=== PATIENT | male | born 1995 | race Caucasian/White ===

== ENCOUNTER 2020-04-11 17:32 | Emergency (ER) | payer OTHER, SELFPAY ==
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
[2020-04-11 17:33] VITALS: BP 151/92; PULSE 87; RESP 18; TEMP 36.2; O2SAT 97
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
[2020-04-11] MEDS: KETOROLAC (*BKC) 60 MG/2 ML VIAL IM (19:05)
[2020-04-11] MEDS: diazePAM INJ (*CRX) 10 MG/2 ML SYRINGE 5 MG IM (19:53)
== END 2020-04-11 20:25 | disposition home or self-care (01) ==
PROVIDERS: Emergency Provider Family Medicine
DX: S16.1XXA Strain of muscle, fascia and tendon at neck level, initial encounter (principal); S93.401A Sprain of unspecified ligament of right ankle, initial encounter; M54.5 Low back pain; V49.40XA Driver injured in collision with unspecified motor vehicles in traffic accident, initial encounter
CPT/HCPCS: 72125; 72131; 73564; 73610; 73630; 96372; 99284; J1885; J3360; L0140

== ENCOUNTER 2020-07-14 11:43 | Emergency (ER) | payer OTHER, SELFPAY ==
--- NOTE | ~2020-07-14 | XR_ITS ---
EXAMINATION: XR hand LT min 3V INDICATION: Pain and laceration at the fourth and fifth fingers TECHNIQUE: Three views of the left hand are obtained. COMPARISON: None available FINDINGS: There is soft tissue swelling of the medial and laceration overlying the fourth and fifth p roximal phalanges. No underlying osseous abnormality is identified. The joint spaces are normal. Bone alignment is maintained. No radiopaque foreign body is identified. IMPRESSION: 1. Soft tissue laceration and swelling overlying the fourth and fifth proximal phalanges without acut e osseous abnormality or radiopaque foreign body identified. Reviewed, dictated and finalized at location A. S TEAM LEADER IMPRESSION: 1. Soft tissue laceration and swelling overlying the fourth and fifth proximal phalanges without acute osseous abnormality or radiopaque foreign body identifi ed.
[2020-07-14 11:45] VITALS: BP 136/73; PULSE 80; RESP 16; TEMP 36.7; O2SAT 96
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
[2020-07-14] MEDS: HYDROcodone/acetaminophen (*CRX) 5-325 MG TABLET 1 TAB PO (12:28)
[2020-07-14] MEDS: TETANUS,DIPHTHERIA,AC PERTUSSIS ADULT (0.5 ML) BOOSTRIX IM (12:29)
[2020-07-14] MEDS: KETOROLAC (*BKC) 60 MG/2 ML VIAL IM (16:00)
[2020-07-14] MEDS: ACETAMINOPHEN 500 MG TABLET 1000 MG PO (17:34)
[2020-07-14] MEDS: diazePAM INJ (*CRX) 10 MG/2 ML SYRINGE 5 MG IM (17:35)
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
== END 2020-07-14 19:38 | disposition home or self-care (01) ==
PROVIDERS: Emergency Provider Emergency Medicine; PCP Family Medicine
DX: S66.325A Laceration of extensor muscle, fascia and tendon of left ring finger at wrist and hand level, initial encounter (principal); S66.327A Laceration of extensor muscle, fascia and tendon of left little finger at wrist and hand level, initial encounter; I10 Essential (primary) hypertension; F17.290 Nicotine dependence, other tobacco product, uncomplicated; Z23 Encounter for immunization; W29.3XXA Contact with powered garden and outdoor hand tools and machinery, initial encounter
CPT/HCPCS: 26418; 73130; 90471; 90715; 96372; 99284; A9270; J1885; J3360

== ENCOUNTER 2020-08-03 17:15 | Outpatient (RCR) | payer OTHER, SELFPAY ==
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
--- NOTE | 2020-07-07 17:45 | PCPTNOTE ---
Patient called & cancelled scheduled appointment this date due to running late.
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
--- NOTE | 2020-08-10 17:31 | PCPTNOTE ---
Patient did not show up for scheduled appointment this date.
--- NOTE | 2020-11-15 08:23 | PCPTNOTE ---
PHYSICAL THERAPY DISCHARGE NOTE Attending Provider: Harika Belcher MD Patient:Uday Gorman Date of :1995 Patient has not returned for any further treatments since 08/03/2020, therefore he will be discharged at this time. Patient?s initial visit was on 06/14/2020 14:30 and he had a total of 9 visits. Thank you for referring this patient to [facility]. Please review, sign, date and return this discharge summary JOSE ANGEL. I have been updated about the patient's current status and I agree with discharge from the above service at this time. Referring Physician Date
== END 2020-09-12 23:59 | disposition home or self-care (01) ==
LOC: ANHPT 17:15
PROVIDERS: PCP Family Medicine; Visit Provider Family Medicine
DX: M54.5 Low back pain (principal)
CPT/HCPCS: 97014; 97110; 97140; 97161; G0283

== ENCOUNTER → 2021-07-16 01:10 | Outpatient (CLI) | payer BC, SELFPAY ==
[2021-07-16 23:19] LABS: SARS-CoV-2 RNA PCR Negative
== END ==
PROVIDERS: Physician Assistant; PCP Family Medicine; Visit Provider Family Medicine
DX: R43.0 Anosmia (principal); Z20.822 Contact with and (suspected) exposure to COVID-19
CPT/HCPCS: C9803; U0003; U0005

== ENCOUNTER 2021-10-10 14:26 | Emergency (ER) | payer BC, SELFPAY ==
--- NOTE | 2021-10-10 14:35 | ED.MALEGU ---
HPI - Male Genitourinary General Chief complaint: Urogenital-Male Stated complaint: uti complaint,nasal congestion Time Seen by Provider: 10/10/21 14:50 Source: patient Mode of arrival: ambulatory Limitations: no limitations History of Present Illness HPI Narrative: Mr. Gorman is a 26-year-old male patient presenting to the clinic today with complaints of burning with urination and nasal congestion 2 to 3 days. He reports he has had chills, low back pain, difficulty urinating, dribbling, and fullness of the bladder. He denies any known fever. Denies any blood in semen or pain with ejaculation. Denies any new sexual partners. does not have any urinary symptoms/vaginal discharge. Related Data Home Medications Medication Instructions Recorded Confirmed hydrocodone-acetaminophen 1 tablet PO Q4-6H 10/10/21 10/10/21 Allergies Allergy/AdvReac Type Severity Reaction Status Date / Time No Known Allergies Allergy Verified 10/10/21 14:49 Review of Systems Review of Systems: Pertinent positives per HPI. Patient denies any rash, headache, visual changes, dizziness, cough, runny nose, sore throat, shortness of breath, chest pain, palpitations, nausea, vomiting, diarrhea, constipation, abdominal pain, or any urinary issues. [facility] Past Medical History Medical History History of hypertension Surgical History Surgical History H/O hand surgery Social History Social History Years smoked: 2 Tobacco type: e-cigarettes/vaping Alcohol intake: current Alcohol use details: rare Substance use: never Substance use type: does not use Comments At the time of my signature, I reviewed and agree with the nursing past medical, surgical, social, and family history. There is no relevant family history pertinent to the patient complaint. Exam Narrative: General: Well-developed, , in no apparent distress Head: Normocephalic, atraumatic Eyes: Pupils equally round and reactive to light bilaterally, EOM intact, sclera and conjunctive clear, no discharge, lids normal Ears: TMs intact and clear, ear canals clear, no drainage, grossly hearing normal. Nose: Nares patent, clear discharge, mild inflammation, no sinus tenderness. Mouth: Oropharynx without lesions or masses, good dentition, MMM. Neck: Supple, trachea midline, no enlargement of anterior or posterior cervical nodes, no thyroid masses or goiter palpable. Cardio: Regular rate and rhythm, s1 and s2 normal, no murmur appreciated. Resp: Clear to auscultation bilaterally anteriorly and posteriorly, no rhonchi, rales, wheezing or rubs Abdomen: Soft, pliable, bowel sounds present in all quadrants, non-tender to palpation, no organomegly, no CVAT tenderness. Some discomfort over the palpation of the urinary bladder. Course Course Emergency Course: Portions of this record may have been created with voice recognition software. Level of Care: Express Care Visit Vital Signs Vital signs: Vital Signs Temperature 36.3 C L 10/10/21 14:42 Pulse Rate 70 10/10/21 14:42 Respiratory Rate 18 10/10/21 14:42 Blood Pressure 129/74 10/10/21 14:42 Pulse Oximetry 100 10/10/21 14:42 Temperature 36.3 C L 10/10/21 14:42 Pulse Rate 70 10/10/21 14:42 Respiratory Rate 18 10/10/21 14:42 Blood Pressure 129/74 10/10/21 14:42 Pulse Oximetry 100 10/10/21 14:42 Vital signs reviewed MDM - Male Genitourinary MDM Narrative Medical decision making narrative: Patient resting comfortably on the exam table. at bedside. Influenza testing negative . Denies any new sexual partners. Has urinary dribbling, fullness, low back pain, chills, and dysuria. UA is negative for any leukocytes or blood. Denies any pain with ejaculation or any blood in his semen. I suspect prostatitis.
[2021-10-10 14:42] VITALS: BP 129/74; PULSE 70; RESP 18; TEMP 36.3; O2SAT 100
== END 2021-10-10 15:19 | disposition home or self-care (01) ==
PROVIDERS: Emergency Provider Nurse Practitioner Family; PCP Family Medicine
DX: N41.0 Acute prostatitis (principal); F17.290 Nicotine dependence, other tobacco product, uncomplicated; I10 Essential (primary) hypertension
CPT/HCPCS: 81003; 87086; 87804; 99213; G0463

== ENCOUNTER 2021-11-16 14:59 | Outpatient (RCR) | payer BC, SELFPAY ==
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
--- NOTE | 2021-11-23 16:28 | PCPTNOTE ---
Patient did not show up for scheduled appointment this date; will follow-up with patient when he returns from vacation.
--- NOTE | 2021-12-20 13:00 | PCPTNOTE ---
Attending Provider: Harika Belcher MD Patient:Uday Gorman Date of :1995 PHYSICAL THERAPY DISCHARGE SUMMARY. Patient was called and notified that his insurance will no longer be accepted after 12/30/2021. He will be discharged at this time and care will be re-established if he decides to return with a new insurance. Patient was very understanding and receptive to this information. Patient?s initial visit was on 11/16/2021 and he had a total of 1 visits. The goals have been not met. Thank you for referring this patient to [facility]. Please review, sign, date and return this discharge summary JOSE ANGEL. I have been updated about the patient's current status and I agree with discharge from the above service at this time. Referring Physician Date
== END 2021-12-26 14:50 | disposition home or self-care (01) ==
LOC: ANHPT 14:59
PROVIDERS: PCP Family Medicine; Referring Provider Family Medicine; Visit Provider Family Medicine
DX: M51.9 Unspecified thoracic, thoracolumbar and lumbosacral intervertebral disc disorder (principal)
CPT/HCPCS: 97112; 97140; 97161

== ENCOUNTER 2022-04-11 16:38 | Outpatient (CLI) | payer OTHER, SELFPAY ==
--- NOTE | ~2022-04-11 | US_ITS ---
EXAMINATION: US soft tissue head and neck DATE: 04/11/2022 17:09 INDICATION: I88.9 - Nonspecific lymphadenitis, unspecified . TECHNIQUE: Grayscale and Doppler ultrasound images of the neck soft tissues were obtained. COMPARISON: None. FINDINGS: The region of clinical concern was interrogated along the posterior left neck revealing mul tiple level 5 lymph nodes, measuring up to 4 mm in short axis diameter. Similar-appearing and size ly mph nodes are present on the right neck. IMPRESSION: The palpable abnormality corresponds to left posterior chain lymph nodes, measuring up to 4 [address] in [address] rt axis diameter. No asymmetry detected between the sonographically visible left and right posterior chain nodes. Reviewed, dictated and finalized at location K. IMPRESSION: The palpable abnormality corresponds to left posterior chain lymph nodes, measu ring up to 4 mm in short axis diameter. No asymmetry detected between the sonog raphically visible left and right posterior chain nodes.
== END 2022-04-11 16:39 | disposition home or self-care (01) ==
PROVIDERS: PCP Family Medicine; Visit Provider Physician Assistant Medical
DX: I88.9 Nonspecific lymphadenitis, unspecified (principal)
CPT/HCPCS: 76536

== ENCOUNTER 2022-04-12 15:30 | Outpatient (RCR) | payer OTHER, SELFPAY ==
--- NOTE | 2022-03-03 15:43 | PCPTNOTE ---
Patient did not show up for scheduled initial evaluation this date.
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
--- NOTE | 2022-03-29 16:21 | PCPTNOTE ---
Patient did not show up for scheduled appointment this date.
--- NOTE | 2022-04-12 16:27 | PTOPPROG ---
Assessment and note entered by Bonilla Arechiga, PT, DPT Evaluation Information Assessment Status Progress Diagnosis back pain Onset chronic Subjective Information Pt states he is feeling stiff and sore today. Pt states he has had a stabbing pain in his back 3 different times already today. Pt states overall he is feeling about the same. He states the pinching and shocking pain he gets have been unchanged. He states his stiffness gets a little better but it is short term relief. He states the therapy massages are the only thing that feels beneficial. Assessment PT Clinical Summary Uday presents to therapy today for his progress report following 5 visits of skilled therapy to treat his chronic back pain. Today he demonstrates improved hip strength but continues to have core weakness. He demonstrates stiff and guarded postures during transitional movements. He demonstrates tenderness to palpation and viable muscle spasms with palpation of his lumbar spine. He reports fair compliance with his HEP and has made minimal progress towards his therapy goals. It is recommended that he follow up with his referring prior to returning to therapy. Plan of Care Interventions Electrical Stimulation,Hot Pack/Cold Pack,Manual Therapy,Neuro Re-education,Patient/Caregiver Educati,Therapeutic Activities,Therapeutic Exercise Treatment Frequency and pending follow up with referring provider Duration These treatments will address the objective and functional deficits as defined above. The patient will be advanced safely and appropriately in order for the patient to progress towards his/her prior level of function. Additional exercises will be introduced and as well as a comprehensive home exercise program upon discharge, if needed, ?to ensure carryover of functional gains achieved in the clinic. This treatment plan has been reviewed and agreement upon by the patient.
--- NOTE | 2022-06-12 11:54 | PCPTNOTE ---
This treatment is being continued on visit number [id number]. Please see documentation on both accounts to view progress. Completed interventions, outcomes, and problems have been marked as Inactive to facilitate the copying of the Care plan routine for recurring accounts.
== END 2022-06-07 08:44 | disposition home or self-care (01) ==
LOC: ANHGOSHPT 15:30
PROVIDERS: PCP Family Medicine; Visit Provider Family Medicine
DX: M51.9 Unspecified thoracic, thoracolumbar and lumbosacral intervertebral disc disorder (principal)
CPT/HCPCS: 97110; 97112; 97140; 97161; 99199

== ENCOUNTER 2022-06-07 14:52 | Outpatient (CLI) | payer OTHER, SELFPAY ==
--- NOTE | ~2022-06-07 | MR_ITS ---
EXAMINATION: MR lumbar spine wo con DATE: 06/07/2022 15:40 INDICATION: Back pain. TECHNIQUE: Magnetic resonance imaging (MRI) of the lumbar spine was performed without intravenous con trast. Sequences included sagittal T2-weighted FSE, sagittal T2-weighted FS FSE, sagittal T1-weighted FSE, and axial T2-weighted FSE. COMPARISON: Lumbar spine CT 04/11/2020 FINDINGS: Bone alignment is normal. There is mild chronic anterior wedging of T12 vertebral body. Int ervertebral disc heights are normal. The distal spinal cord signal intensity is normal. The conus med ullaris is at L1. The following disc levels are specifically discussed: L1-L2: The disc does not extend beyond the endplate margin. There is mild left facet joint osteoarthr itis. There is no neural foraminal stenosis. There is no central canal stenosis. L2-L3: The disc is mildly bulging. There is mild bilateral facet joint osteoarthritis. There is mild bilateral neural foraminal stenosis. There is no central canal stenosis. L3-L4: The disc does not extend beyond the endplate margin. There is mild bilateral facet joint osteo arthritis. There is no neural foraminal stenosis. There is no central canal stenosis. L4-L5: The disc is bulging. There is mild bilateral facet joint osteoarthritis. There is mild bilater al neural foraminal stenosis. There is no central canal stenosis. L5-S1: The disc is bulging. There is mild bilateral facet joint osteoarthritis. There is mild bilater al neural foraminal stenosis. There is mild central canal stenosis. IMPRESSION: 1. Mild lumbar spondylosis. Reviewed, dictated and finalized at location E. FLEXER IMPRESSION: 1. Mild lumbar spondylosis.
[2022-06-07 16:16] LABS: Alanine Aminotransferase 19 U/L (6-50); Albumin Level 4.6 g/dL (3.5-5.1); Alkaline Phosphatase 43 U/L (38-126); Anion Gap 5 mmol/L (8-16); Aspartate Amino Transferase 24 U/L (17-59); Bilirubin,Total 0.6 mg/dL (0.2-1.3); Blood Urea Nitrogen 15 mg/dL (9-20); Calcium 9.3 mg/dL (8.4-10.2); Carbon Dioxide 26 mmol/L (22-30); Chloride 107 mmol/L (98-107); Estimated Glomerular Filt Rate > 60; Glucose 89 mg/dL (65-110); Sodium 138 mmol/L (137-145)
[2022-06-07 16:45] LABS: Hemoglobin A1C 5.2 % (<5.7)
== END 2022-06-07 14:53 | disposition home or self-care (01) ==
LOC: ANHIMG 15:00
PROVIDERS: PCP Family Medicine; Visit Provider Neurological Surgery
DX: N31.9 Neuromuscular dysfunction of bladder, unspecified (principal); M54.9 Dorsalgia, unspecified; M47.816 Spondylosis without myelopathy or radiculopathy, lumbar region
CPT/HCPCS: 36415; 72148; 80053; 83036; 84443

== ENCOUNTER 2022-06-14 09:00 | Outpatient (RCR) | payer OTHER, SELFPAY ==
--- NOTE | 2022-06-12 11:54 | PCPTNOTE ---
The treatment documented on this account is a continuation of the treatment documented on visit number [id number]. Please see documentation on both accounts to view progress. The Plan of Care has been transitioned and updated within the new V#. I have addressed and agree with the discipline specific Problems, Interventions, and Goals for the current certification period. Completed interventions, outcomes, and problems have been marked as Inactive to facilitate the copying of the Care plan routine for recurring accounts.
--- NOTE | 2022-06-14 15:20 | PCPTNOTE ---
Patient did not show up for scheduled re-evaluation this date. This was his last scheduled visit.
--- NOTE | 2022-07-05 09:34 | PTOPDC ---
Assessment and note entered by Bonilla Arechiga, PT, DPT Evaluation Information Assessment Status Discharge - Pt Not Present Subjective Information Pt has not returned to therapy since 04/12/22. He had a scheduled appointment on 06/13/22 and did not show up to this. Assessment PT Clinical Summary Uday has completed 6 visits of therapy from from 04/12/22. He is going to be discharged at this time. If he needs additional therapy in the future, he will need a new order. Plan of Care Treatment Frequency and to be discharged Duration
== END 2022-07-05 15:52 | disposition home or self-care (01) ==
LOC: ANHGOSHPT 09:00
PROVIDERS: PCP Family Medicine; Visit Provider Family Medicine
DX: M51.9 Unspecified thoracic, thoracolumbar and lumbosacral intervertebral disc disorder (principal)
CPT/HCPCS: 99199

== ENCOUNTER 2022-09-28 12:44 | Outpatient (CLI) | payer OTHER, SELFPAY ==
--- NOTE | ~2022-09-28 | MR_ITS ---
MRI of the thoracic spine Clinical History: Back pain Technique: Axial T2-weighted and gradient images, and sagittal T1-weighted, T2-weighted, and STIR suzette ges were acquired. Findings: There is no fracture or subluxation of the thoracic spine. Vertebral bodies maintain normal height and alignment. No focal bone marrow signal abnormality seen. Probable small disc bulge at T5-T6 which may minimally flatten the ventral cord. No other significant disc bulge or herniation seen in the thoracic spine. No other areas of canal stenosis or cord compre ssion. No epidural mass or collection seen otherwise. No abnormal signal seen in the spinal cord. Paravertebral soft tissues are unremarkable. Impression: Small disc bulge at T5-T6 which may minimally flatten the ventral cord. Reviewed, dictated and finalized at [facility]. Impression: Small disc bulge at T5-T6 which may minimally flatten the ventral cord.
== END 2022-09-28 12:45 | disposition home or self-care (01) ==
LOC: ANHIMG 12:47
PROVIDERS: PCP Family Medicine; Visit Provider Neurological Surgery
DX: M51.24 Other intervertebral disc displacement, thoracic region (principal)
CPT/HCPCS: 72146

== ENCOUNTER 2022-10-05 14:58 | Outpatient (CLI) | payer OTHER, SELFPAY ==
[2022-10-05 15:33] LABS: Hematocrit 44.6 % (42.0-52.0); Mean Corpuscular HGB Conc 33.6 g/dl (32-36); Mean Corpuscular Hemoglobin 32.9 pg (26-34); Mean Corpuscular Volume 97.8 fl (80-100); Mean Platelet Volume 8.6 fl (7.4-10.4); Platelet Count Result 233 k/mm3 (150-375); Red Blood Count 4.56 M/mm3 (4.6-6.20); White Blood Count 6.4 K/mm3 (4.5-10.0)
[2022-10-05 16:06] LABS: Erythrocyte Sedimentation Rate 4 mm/hr (0-20)
[2022-10-05 18:36] LABS: Alanine Aminotransferase 19 U/L (6-50); Albumin Level 4.6 g/dL (3.5-5.1); Alkaline Phosphatase 51 U/L (38-126); Anion Gap 9 mmol/L (8-16); Aspartate Amino Transferase 24 U/L (17-59); Bilirubin,Total 0.7 mg/dL (0.2-1.3); Blood Urea Nitrogen 12 mg/dL (9-20); CRP < 0.5 mg/dL (<1.0); Calcium 9.2 mg/dL (8.4-10.2); Carbon Dioxide 25 mmol/L (22-30); Chloride 106 mmol/L (98-107); Estimated Glomerular Filt Rate > 60; Glucose 84 mg/dL (65-110); Sodium 140 mmol/L (137-145)
[2022-10-10 10:08] LABS: Gliadin AB, IgG <1.0 U/mL (<15.0); TTG IGA AB <1.0 U/mL (<15.0)
== END 2022-10-05 14:59 | disposition home or self-care (01) ==
PROVIDERS: PCP Family Medicine; Referring Provider Nurse Practitioner; Visit Provider Physician Assistant Medical
DX: K62.89 Other specified diseases of anus and rectum (principal); M54.50 Low back pain, unspecified; R73.03 Prediabetes; R10.84 Generalized abdominal pain; R30.0 Dysuria; R11.0 Nausea; R35.0 Frequency of micturition; R63.4 Abnormal weight loss
CPT/HCPCS: 36415; 80053; 83036; 85027; 85652; 86038; 86140; 86255; 86364

== ENCOUNTER 2022-10-16 17:14 | Outpatient (CLI) | payer OTHER, SELFPAY ==
[2022-10-26 01:31] LABS: Calprotectin, Stool <5 mcg/g
== END 2022-10-16 17:15 | disposition home or self-care (01) ==
LOC: ANHLAB 17:15
PROVIDERS: PCP Family Medicine; Visit Provider Nurse Practitioner
DX: R63.4 Abnormal weight loss (principal); R35.0 Frequency of micturition; R30.0 Dysuria; R11.0 Nausea; R10.84 Generalized abdominal pain; K62.89 Other specified diseases of anus and rectum
CPT/HCPCS: 83993

== ENCOUNTER 2022-10-18 11:24 | Outpatient (CLI) | payer OTHER, SELFPAY ==
--- NOTE | ~2022-10-18 | CT_ITS ---
EXAMINATION: CT abdomen pelvis w con DATE: 10/18/2022 12:09 INDICATION: Abdominal pain, rectal pain, abnormal weight loss TECHNIQUE: Computed tomography (CT) of the abdomen and pelvis was performed with 100 CC Omnipaque 350 intravenous contrast. Automated exposure control and iterative reconstruction technique were employe d. Exam dose: 376.00 mGy-cm total exam DLP. COMPARISON: March 27, 2016 CT abdomen pelvis FINDINGS: Slight patchy groundglass density in the posterior left lung base, left lower lobe, likely due to minimal atelectasis. The lung bases are otherwise clear. Normal heart size. No pericardial or pleural effusion. No gallbladder wall thickening or pericholecystic fluid or fat stranding. No bile duct or pancreatic duct dilatation. No hepatic, splenic, pancreatic, and adrenal or renal space-occupying mass lesion is detected. No uri nary tract calculus or hydroureteronephrosis. The urinary bladder and prostate gland are unremarkable . Normal caliber of the abdominal aorta. No intraperitoneal or retroperitoneal or pelvic mass lesion or adenopathy or ascites. Normal appendix. No bowel obstruction, bowel wall thickening, pneumatosis or intraperitoneal free air . Very small fat-containing umbilical hernia. Included skeletal structures are unremarkable. IMPRESSION: No significant abnormality Reviewed, dictated and finalized at [facility]. Reviewed, dictated and finalized at location B. IMPRESSION: No significant abnormality
== END 2022-10-18 11:25 | disposition home or self-care (01) ==
PROVIDERS: PCP Family Medicine; Visit Provider Nurse Practitioner
DX: R35.0 Frequency of micturition (principal); R30.0 Dysuria; R11.0 Nausea; R10.84 Generalized abdominal pain; K62.89 Other specified diseases of anus and rectum; R63.4 Abnormal weight loss; R10.9 Unspecified abdominal pain
CPT/HCPCS: 74177; Q9967

== ENCOUNTER 2022-11-21 10:22 | Outpatient (CLI) | payer OTHER, SELFPAY ==
--- NOTE | 2022-11-21 11:00 | NEURO_ITS ---
Impression: Patient reports history of shooting pains in lower extremities. # Normal nerve conduction study. # Incomplete activation of left gastrocnemius and left fibularis longus due to discomfort. Otherwise normal EMG/needle exam in rest of tested muscles. # Clinical correlation recommended. Nerve Conduction Studies Anti Sensory Summary Table Stim Site NR Peak (ms) P-T Amp (?V) Site1 Site2 Delta-P (ms) Dist (cm) Kurt (m/s) Left Sup Fibular Anti Sensory (Ant Lat Mall) 14 cm 3.1 30.7 14 cm Ant Lat Mall 3.1 16.0 52 Right Sup Fibular Anti Sensory (Ant Lat Mall) 14 cm 3.3 9.9 14 cm Ant Lat Mall 3.3 16.0 48 Left Sural Anti Sensory (Lat Mall) Calf 3.8 23.0 Calf Lat Mall 4.0 17.0 43 Right Sural Anti Sensory (Lat Mall) Calf 3.8 15.1 Calf Lat Mall 3.8 17.0 45 Motor Summary Table Stim Site NR Onset (ms) O-P Amp (mV) Site1 Site2 Delta-0 (ms) Dist (cm) Kurt (m/s) Left Peroneal Motor (Vastus Med) Ankle 4.5 6.6 Popit Ankle 8.2 40.0 49 Popit 12.7 6.3 B Fib Ankle 6.0 30.0 50 B Fib 10.5 6.6 Right Peroneal Motor (Vastus Med) Ankle 4.3 6.4 Popit Ankle 9.1 42.0 46 Popit 13.4 5.5 B Fib Ankle 6.4 31.0 48 B Fib 10.7 5.9 Left Tibial Motor (Abd Vasquez Brev) Ankle 4.2 9.8 Knee Ankle 8.6 42.0 49 Knee 12.8 7.3 Right Tibial Motor (Abd Vasquez Brev) Ankle 4.5 5.2 Knee Ankle 7.9 43.0 54 Knee 12.4 4.5 F Wave Studies NR F-Lat (ms) L-R F-Lat (ms) Left Peroneal (Mrkrs) (EDB) 48.99 0.23 Right Peroneal (Mrkrs) (EDB) 49.22 0.23 Left Tibial (Mrkrs) (Abd Hallucis) 49.66 0.07 Right Tibial (Mrkrs) (Abd Hallucis) 49.73 0.07 EMG Side Muscle Nerve Root Ins Act Fibs Amp Dur Recrt Comment Right AntTibialis Dp Br Fibular L4-5 Nml Nml Nml Nml Nml Right Gastroc Tibial S1-2 Nml Nml Nml Nml Nml Right Fibularis Long Sup Br Fibular L5-S1 Nml Nml Nml Nml Nml Right Flex Dig Long Tibial L5-S2 Nml Nml Nml Nml Nml Right Ext Dig Brev Dp Br Fibular L5, S1 Nml Nml Nml Nml Nml Left AntTibialis Dp Br Fibular L4-5 Nml Nml Nml Nml Nml Left Gastroc Tibial S1-2 Nml Nml Nml Nml Incomplete activation Left Fibularis Long Sup Br Fibular L5-S1 Nml Nml Nml Nml Incomplete activation Left Flex Dig Long Tibial L5-S2 Nml Nml Nml Nml Nml Left Ext Dig Brev Dp Br Fibular L5, S1 Nml Nml Nml Nml Nml MTDD
== END 2022-11-21 10:23 | disposition home or self-care (01) ==
PROVIDERS: PCP Family Medicine; Visit Provider Neurological Surgery
DX: M54.50 Low back pain, unspecified (principal)
CPT/HCPCS: 95886; 95910; 97110

== ENCOUNTER 2022-12-04 00:29 | Day surgery (SDC) | payer OTHER, SELFPAY ==
[2022-11-23 12:25] VITALS: BMI 28.0
[2022-12-04 09:59] VITALS: BP 140/102; PULSE 115; RESP 16; TEMP 36.8; O2SAT 99; BMI 25.6
[2022-12-04] MEDS: LACTATED RINGERS 1,000 ML 150 ML IV CONT (10:08)
--- NOTE | 2022-12-04 10:10 | WPDANESEPPF ---
Anes - Initial Pre Proc Eval Procedure: Operation Date: 12/04/22 11:00 Proposed Procedures p Esophagogastroduodenoscopy & Colonoscopy - Seymour Martínez MD Date/Time: 12/04/22 10:10 Surgeon: Seymour Martínez MD Pre Op Diagnosis: abd pain, rectal pain, diarrhea Patient Data Age: 27 Gender: M Height: 1.75 m Weight: 78.7 kg Last Vital Signs Temp 36.8 C 12/04/22 09:59 Pulse 115 H 12/04/22 09:59 Resp 16 12/04/22 09:59 BP 140/102 H 12/04/22 09:59 Pulse Ox 99 12/04/22 09:59 O2 Del Method Room Air 12/04/22 09:59 Allergies Allergy/AdvReac Type Severity Reaction Status Date / Time No Known Allergies Allergy Verified 12/04/22 09:58 Home Medications Medication Instructions Recorded Confirmed Type triamcinolone acetonide 0.1 % 1 applic topical BID #30 grams 09/22/22 11/23/22 Rx topical cream hyoscyamine sulfate 0.125 mg 0.125 mg PO QID #120 tabs 10/05/22 11/23/22 Rx tablet (Levsin) omeprazole 40 mg capsule,delayed 40 mg PO DAILY #30 caps 10/05/22 11/23/22 Rx release cyclobenzaprine 10 mg tablet 10 mg PO TID PRN muscle spasm #60 11/23/22 11/23/22 Rx tabs hydrocodone 10 mg-acetaminophen 1 tablet PO Q4-6H #60 tabs 12/01/22 12/04/22 Rx 325 mg tablet ondansetron 4 mg disintegrating 4 mg PO Q6H #60 tabs 12/01/22 12/04/22 Rx tablet Patient hx anesthesia problems: none Family hx anesthesia problems: none Results Review: All pre-operative results and documents have been reviewed as part of the pre-operative evaluation. [facility] Past Medical History Medical History Abnormal weight loss Excessive thirst Frequent urination Generalized abdominal pain History of hypertension Rectal pain Surgical History Surgical History H/O hand surgery Social History Social History Years smoked: 2 Smoking status: Former smoker Tobacco type: cigarettes Second hand tobacco smoke exposure: No Alcohol intake: current Alcohol use details: rare Substance use: current Substance use type: marijuana Other substance usage details: daily marijuana smoker Current Housing: I Have Housing Concerned About Future Housing: No Difficulty Paying Gas/Electric Bills: No Difficulty Paying for Meds: No Currently Unemployed: No Education: High School Diploma/GED Difficulty w/ Childcare or Family Care: No Living arrangements: with family Occupation/Education: occupation Gender identity (if verbalized by the patient): Male Sexual Orientation (if Verbalized by the Patient): Straight or Heterosexual Spiritual care concerns: No Agree to blood products: Yes Anes - Eval Final PreProcedure Day of Procedure 12/04/22 10:10 Patient weight: normal Heart: regular rate and rhythm Lungs: clear to auscultation Airway: Mallampati scale class II Neurological: alert and oriented Last oral intake: >/= 8 hours ASA classification: II Emergent: no Anesthetic plan: proceed Anesthesia type and monitoring: general GIVS and standard monitoring Results Review: All pre-operative results and documents have been reviewed as part of the pre-operative evaluation. Informed Consent: The patient's anesthetic plan and its attendant risks and benefits were discussed with the patient/family/POA. Questions were solicited and answers provided to the satisfaction of the patient/family/POA.
--- NOTE | 2022-12-04 10:14 | PM.HPGS ---
History of Present Illness History of Present Illness Consent: Risks, benefits, and alternatives have been discussed and questions answered. Patient agrees to proceed with procedure. Chief complaint: abd pain, rectal pain, diarrhea Narrative: Uday Gorman is a 27 year old male with abdominal pain and weight loss, never had scopes. CT scan unremarkable. Review of Systems Constitutional: Constitutional: Denies headache(s) and Denies weakness Eyes: Eyes: Denies blurry vision ENT: Reports Normal hearing present, Denies headache(s) and Denies neck pain Cardiovascular: Cardiovascular: Denies chest pain and Denies dyspnea Respiratory: Respiratory: Denies dyspnea Gastrointestinal: Gastrointestinal: Reports no additional gastrointestinal complaints Genitourinary: Genitourinary: Denies dysuria Musculoskeletal: Musculoskeletal: Denies neck pain Integumentary/Breasts: Skin/Breast: Denies dry skin Neurologic: Reports Normal hearing present, Denies headache(s) and Denies weakness Psychiatric: Psychiatric: Denies anxiety Endocrine: Endocrine: Denies change in body appearance Hematologic/Lymphatic: Hematologic/Lymphatic: Denies easy bleeding Allergic/Immunologic: Allergic/Immunologic: Denies urticaria PMFSH Past Medical History Medical History Abnormal weight loss Excessive thirst Frequent urination Generalized abdominal pain History of hypertension Rectal pain Surgical History Surgical History H/O hand surgery Social History Social History Years smoked: 2 Smoking status: Former smoker Tobacco type: cigarettes Second hand tobacco smoke exposure: No Alcohol intake: current Alcohol use details: rare Substance use: current Substance use type: marijuana Other substance usage details: daily marijuana smoker Current Housing: I Have Housing Concerned About Future Housing: No Difficulty Paying Gas/Electric Bills: No Difficulty Paying for Meds: No Currently Unemployed: No Education: High School Diploma/GED Difficulty w/ Childcare or Family Care: No Living arrangements: with family Occupation/Education: occupation Gender identity (if verbalized by the patient): Male Sexual Orientation (if Verbalized by the Patient): Straight or Heterosexual Spiritual care concerns: No Agree to blood products: Yes Meds Home Medications and Allergies Home Medications Medication Instructions Recorded Confirmed Type triamcinolone acetonide 0.1 % 1 applic topical BID #30 grams 03/24/23 05/25/23 Rx topical cream hyoscyamine sulfate 0.125 mg 0.125 mg PO QID #120 tabs 10/05/22 11/23/22 Rx tablet (Levsin) omeprazole 40 mg capsule,delayed 40 mg PO DAILY #30 caps 10/05/22 11/23/22 Rx release cyclobenzaprine 10 mg tablet 10 mg PO TID PRN muscle spasm #60 11/23/22 11/23/22 Rx tabs hydrocodone 10 mg-acetaminophen 1 tablet PO Q4-6H #60 tabs 12/01/22 12/04/22 Rx 325 mg tablet ondansetron 4 mg disintegrating 4 mg PO Q6H #60 tabs 12/01/22 12/04/22 Rx tablet Allergies Allergy/AdvReac Type Severity Reaction Status Date / Time No Known Allergies Allergy Verified 12/04/22 09:58 Vital Signs Vital Signs - 24 hr 12/04/22 09:59 Temperature 98.3 F Pulse Rate 115 H Respiratory Rate 16 Blood Pressure 140/102 H Pulse Oximetry 99 Oxygen Delivery Room Air Exam Const: General: comfortable and no acute distress HENMT: Face/Nose/Sinus: Normal nares present Eyes: General: appearance normal, both eyes and all related structures Neck: Neck: no JVD Resp: Auscultation: clear to auscultation bilaterally Cardio: Rate: regular rate Rhythm: regular rhythm GI: Inspection: non-distended GI Palp: Yes Soft to palpation Skin: General skin exam: normal color Neuro: General: gait normal Speech: normal sp
--- NOTE | 2022-12-04 10:31 | SUR.OPER ---
EGD end 1024 COLONOSCOPY START 1031
[2022-12-04 10:46] VITALS: BP 101/49; PULSE 88; RESP 26; O2SAT 95
[2022-12-04 10:56] VITALS: BP 120/70; PULSE 100; RESP 21; O2SAT 96
[2022-12-04 11:06] VITALS: BP 122/77; PULSE 106; RESP 26; O2SAT 100
== END 2022-12-04 11:25 | disposition home or self-care (01) ==
PROVIDERS: PCP Family Medicine; Visit Provider Internal Medicine Gastroenterology
PROC: 0DJ08ZZ Inspection of Upper Intestinal Tract, Via Natural or Artificial Opening Endoscopic (ICD-10-PCS; CPT 43235; principal; 2022-12-04 11:00)
DX: R19.4 Change in bowel habit (principal); D12.3 Benign neoplasm of transverse colon; D12.8 Benign neoplasm of rectum; K64.8 Other hemorrhoids; R63.4 Abnormal weight loss; R10.84 Generalized abdominal pain; Z87.891 Personal history of nicotine dependence; F12.90 Cannabis use, unspecified, uncomplicated
CPT/HCPCS: 45380; 45385; 43239; 88305; J2704; J7120

== ENCOUNTER 2023-01-16 12:01 | Outpatient (CLI) | payer OTHER, SELFPAY ==
[2023-01-16 12:44] LABS: Erythrocyte Sedimentation Rate 1 mm/hr (0-20)
[2023-01-16 13:35] LABS: Hepatitis B Surface Antigen Negative (Negative)
[2023-01-16 13:40] LABS: HAV RESULT Negative (Negative); Hepatitis B Core IgM Result Negative (Negative)
[2023-01-16 13:46] LABS: HIV 1/2 Ab P24 Ag Result Negative (Negative)
[2023-01-16 13:52] LABS: Hepatitis C Virus Antibody Negative (Negative)
[2023-01-17 09:12] LABS: Rheumatoid Factor < 12.0 IU/ML (<12)
[2023-01-20 09:30] LABS: HLA B27 Negative (Negative)
[2023-01-22 13:01] LABS: Anti Cyclic Citrullinated Pept <16 Units (<20)
== END 2023-01-16 12:02 | disposition home or self-care (01) ==
LOC: ANHLAB 12:03
PROVIDERS: PCP Family Medicine; Visit Provider Nurse Practitioner
DX: M53.3 Sacrococcygeal disorders, not elsewhere classified (principal); R63.4 Abnormal weight loss; K58.9 Irritable bowel syndrome, unspecified
CPT/HCPCS: 36415; 80074; 85652; 86200; 86430; 86703; 86812; G0432

== ENCOUNTER 2023-01-26 09:15 | Outpatient (RCR) | payer OTHER, SELFPAY ==
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
--- NOTE | 2022-11-20 12:32 | PCPTNOTE ---
Patient called & cancelled scheduled appointment this date due to having pelvic floor issued day. He has been rescheduled for tomorrow.
--- NOTE | 2022-11-28 14:32 | PTOPPROG ---
Assessment and note entered by Bonilla Arechiga, PT, DPT Evaluation Information Assessment Status Progress Diagnosis low back pain Onset chronic Subjective Information Pt reports improved compliance with his HEP. He states he can make the pain lessen when he does his exercises but it does not go away. He states after his stretches his mobility will improve and he will get less sharp pains. He states he is going through so many other things right now that the back is the least of his concerns. He states bending, lifting, twisting, and living his life makes his back worse. Pt reports 10-20% improvement. Assessment PT Clinical Summary Uday is a 27 y/o male with a long standing history of low back and thoracic pain who presents to therapy today for his progress report following 4 visits of skilled therapy to treat his back pain. Today he demonstrates lumbar motion that is mildly limited in all directions with extension the most limited and limited by pain. He continues to demonstrate hip and core weakness globally. He reports mild improvements with increased consistency with his HEP. Continuation of skilled therapy services are indicated to improve core strength, lumbar and thoracic mobility, functional stability, and to progress towards a return to PLOF. Plan of Care Interventions Electrical Stimulation,Gait Training,Hot Pack/Cold Pack,Manual Therapy,Mechanical Traction,Neuro Re- education,Patient/Caregiver Educati,Therapeutic Activities,Therapeutic Exercise PT Services Indicated Yes Treatment Frequency and 0-1x/wk for 4 wks Duration These treatments will address the objective and functional deficits as defined above. The patient will be advanced safely and appropriately in order for the patient to progress towards his/her prior level of function. Additional exercises will be introduced and as well as a comprehensive home exercise program upon discharge, if needed, ?to ensure carryover of functional gains achieved in the clinic. This treatment plan has been reviewed and agreement upon by the patient.
--- NOTE | 2022-12-25 16:54 | PTOPPROG ---
Assessment and note entered by Bonilla Arechiga, PT, DPT Evaluation Information Assessment Status Progress Diagnosis low back pain Onset chronic Subjective Information When asked how things are going pt states he's still alive and it's still the same sh*t . Pt states he just returned from [facility] and is going on a float trip this weekend. He did not mention any complaints about his pain. He states he got a massage yesterday so his back pain is about a 5/10 . He states he has been doing more stretching about 3-4x/wk. Assessment PT Clinical Summary Uday is a 27 y/o male with a long standing history of low back and thoracic pain who presents to therapy today for his progress report following 5 visits of skilled therapy to treat his back pain. He reports good compliance with his HEP with minor improvements in his day to day pain. Entire time today was spent on thoroughly explaining spinal alignment, body mechanics, and lifting mechanics to assist with job related work. Pt plans to implement this into his everyday work and see if his back pain decreases. Today he was able to decrease his pain with positional changes of his spine. He plans to follow up in 1 month. Plan of Care Interventions Electrical Stimulation,Gait Training,Hot Pack/Cold Pack,Manual Therapy,Mechanical Traction,Neuro Re- education,Patient/Caregiver Educati,Therapeutic Activities,Therapeutic Exercise PT Services Indicated Yes Treatment Frequency and 0-1x/wk for 4 wks Duration These treatments will address the objective and functional deficits as defined above. The patient will be advanced safely and appropriately in order for the patient to progress towards his/her prior level of function. Additional exercises will be introduced and as well as a comprehensive home exercise program upon discharge, if needed, ?to ensure carryover of functional gains achieved in the clinic. This treatment plan has been reviewed and agreement upon by the patient.
--- NOTE | 2023-01-22 15:41 | PCPTNOTE ---
Patient called & cancelled scheduled appointment this date, he has been rescheduled.
--- NOTE | 2023-01-26 10:01 | PTOPPROG ---
Assessment and note entered by Bonilla Arechiga, PT, DPT Evaluation Information Assessment Status Progress Diagnosis low back pain Onset chronic Subjective Information Pt states he has incorporated using good body mechanics and lifting mechanics into his work day. He states for the first 2 weeks his legs were so sore all the time from changing the way he was lifting, carrying, and even standing. He states his back pain is still there for the same frequency but less intensity. He states he has to be less cognitive of maintaining spinal neutral posture. He feels like his pain is directly connected to his body mechanics. Assessment PT Clinical Summary Uday is a 27 y/o male with a long standing history of low back and thoracic pain who presents to therapy today for his progress report following 6 visits of skilled therapy to treat his back pain. He reports good compliance with his HEP with minor improvements in his day to day pain. 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 He demonstrates improved mechanics with decreased cues needed at this time point. Pt plans to continue implementing changes into daily work. Pt states he will follow up in a month if needed. Plan of Care Interventions Electrical Stimulation,Gait Training,Hot Pack/Cold Pack,Manual Therapy,Mechanical Traction,Neuro Re- education,Patient/Caregiver Educati,Therapeutic Activities,Therapeutic Exercise PT Services Indicated Yes Treatment Frequency and follow up in one month if needed Duration These treatments will address the objective and functional deficits as defined above. The patient will be advanced safely and appropriately in order for the patient to progress towards his/her prior level of function. Additional exercises will be introduced and as well as a comprehensive home exercise program upon discharge, if needed, ?to ensure carryover of functional gains achieved in the clinic. This treatment plan has been reviewed and agreement upon by the patient.
--- NOTE | 2023-01-31 11:55 | PCPTNOTE ---
This treatment is being continued on visit number [id number]. Please see documentation on both accounts to view progress. Completed interventions, outcomes, and problems have been marked as Inactive to facilitate the copying of the Care plan routine for recurring accounts.
== END 2023-01-29 09:22 | disposition still patient (30) ==
LOC: ANHGOSHPT 09:15
PROVIDERS: PCP Family Medicine; Visit Provider Neurological Surgery
DX: M54.50 Low back pain, unspecified (principal); M51.9 Unspecified thoracic, thoracolumbar and lumbosacral intervertebral disc disorder
CPT/HCPCS: 97012; 97110; 97140; 97162; 97530

== ENCOUNTER 2023-03-15 12:38 | Outpatient (CLI) | payer OTHER, SELFPAY ==
--- NOTE | ~2023-03-15 | XR_ITS ---
EXAMINATION: XR hand LT min 3V INDICATION: Left hand pain TECHNIQUE: Three views of the left hand are obtained. COMPARISON: 07/14/2020 FINDINGS: No fracture, dislocation, or subluxation. The bones, soft tissues, and joint spaces are nor mal. IMPRESSION: 1. No acute osseous abnormality. Reviewed, dictated and finalized at location F.
--- NOTE | ~2023-03-15 | XR_ITS ---
EXAMINATION: XR sacroiliac joints min 3V INDICATION: Sacrococcygeal orders not elsewhere classified TECHNIQUE: Three views of the sacroiliac joints are obtained. COMPARISON: None available FINDINGS: Bone alignment is normal. There is no fracture. No abnormal sclerosis or erosion of the sac roiliac joints. The visualized lumbar spine is unremarkable. IMPRESSION: 1. No acute osseous abnormality. Reviewed, dictated and finalized at location F.
--- NOTE | ~2023-03-15 | XR_ITS ---
XR chest 2V 03/15/2023 13:14 INDICATION: Abnormal weight loss PROCEDURE: 2 view chest COMPARISON: 01/26/2017 FINDINGS: Fracture, dislocation or subluxation is not identified. The soft tissues appear within norm al limits. No foreign bodies are identified. IMPRESSION: 1: NO ACUTE BONE OR JOINT ABNORMALITY IDENTIFIED. Reviewed, dictated and finalized at location L.
--- NOTE | ~2023-03-15 | XR_ITS ---
EXAMINATION: XR pelvis 1-2V INDICATION: Sacrococcygeal disorders not elsewhere classified TECHNIQUE: AP view the pelvis is obtained. COMPARISON: CT, 10/18/2022 FINDINGS: Bone alignment is normal. There is no fracture. The visualized bowel gas pattern is normal. IMPRESSION: 1. No acute osseous abnormality. Reviewed, dictated and finalized at location F.
== END 2023-03-15 12:39 | disposition home or self-care (01) ==
PROVIDERS: PCP Family Medicine; Referring Provider Nurse Practitioner; Visit Provider Physician Assistant
DX: M79.645 Pain in left finger(s) (principal); R63.4 Abnormal weight loss; M53.3 Sacrococcygeal disorders, not elsewhere classified; K58.9 Irritable bowel syndrome, unspecified
CPT/HCPCS: 71046; 72170; 72202; 73130

== ENCOUNTER 2024-11-14 12:23 | Outpatient (CLI) | payer OTHER, SELFPAY ==
--- OUTSIDE RECORDS SUMMARY | 2024-11-14 12:25 | XMS_ITS | Patient Health Record ---
Author Organization [facility] Address [address] [place] [address] Care Team Providers Care Telegraphic Instrument Supervisor Name Role Phone Sally Tinsley Primary Care Provider Allergies No Known Allergies Reason For Referral No Information Medications Medication SIG (Take, Route, Frequency, Duration) Notes Start Date End Date Status Vraylar 1.5 MG 1 capsule Orally at night for 30 day(s) Active HYDROcodone-Acetaminoph en 10-325 MG 1 tablet as needed Orally four times a day PCP Dr Elise Active Zoloft 50 MG 1 tablet Orally Once a day for 30 day(s) 07/26/2021 Active Social History Tobacco Use: Social History Observation Description Date Details (start date - stop date) Unknown Dont use, Tobacco Use/Smoking Question Answer Notes Are you a Uses tobacco in other forms Problems Problem Type SNOMED Code ICD Code Onset Dates Problem Status W/U Status Risk Notes Problem Mood disorder (72400266) Mood disorder (F39) 022 Active confirmed highly suspect BIPOLAR DISORDER based on initial assessment and symptoms currently being reported however need to further assess. Has failed trials of antidepressants as single agent Problem Generalized anxiety disorder (79652708) DEXTER (generalized anxiety disorder) (F41.1) Active confirmed Problem Depressive disorder (38352343) Depressive disorder (F32.9) Active confirmed Plan Of Treatment No Information Insurance Providers Payer Name Payer Address Payer Phone Subscriber Number Group Number Insured Name Patient Relationship to Insured Coverage Start Date Coverage End Date [facility] Plan [address] [place] [place] [id number] Uday Gorman Self - patient is the insured [address] [place] [address] [id number] Uday Gorman Self - patient is the insured 1 Medical (General) History Medical History History ICD Code passing out- silent seizures Surgical History Surgery Date(Month/Year) bilateral carpal tunnel release
--- OUTSIDE RECORDS SUMMARY | 2024-11-14 12:25 | XMS_ITS | CONTINUITY OF CARE DOCUMENT ---
Author Name donna thompson Address Unknown Organization [facility] Address [address] [place] [address] [address] [place] [address] Phone [phone] Care Team Providers Care Developer Automatic Name Role Phone Kevin Khan MD Unavailable [phone] Kevin Khan MD Unavailable INSURANCE PROVIDERS Payer name Policy type / Coverage type Kenneth red libertarian ID [id number] PAY [id number]
--- OUTSIDE RECORDS SUMMARY | 2024-11-14 12:25 | XMS_ITS | Clinical Summary ---
Author Organization [facility] Address [facility] [place] [address] Care Team Providers Care Chicken Cutter Name Role Phone Harika Belcher MD Primary Care Provider [phone] Consuelo Santo MD Unavailable [phone] Allergies No known active allergies Medications ibuprofen 800 MG tablet Take 800 mg by mouth every 6 (six) hours as needed for Pain. Active HYDROcodone-jude taminophen 10-325 MG tablet Take 1 tablet by mouth every 6 (six) hours as needed for Pain. Active ARIPiprazole 5 MG tablet Take 5 mg by mouth nightly at bedtime. 12/20/2020 Active famotidine 40 MG tablet Take 40 mg by mouth daily. 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 Not on file Not on file Last Filed Vital Signs Vital Sign Reading Time Taken Comments Blood Pressure 116/65 04/27/2022 5:15 PM CDT Pulse 68 04/27/2022 5:15 PM CDT Temperature 36.7 C (98 F) 04/27/2022 3:03 PM CDT Respiratory Rate 22 04/27/2022 5:15 PM CDT Oxygen Saturation 98% 04/27/2022 5:15 PM CDT Inhaled Oxygen Concentration - - Weight 89.4 kg (197 lb 1.5 oz) 04/27/2022 3:03 P M CDT Height 177.8 cm (5' 10 ) 04/27/2022 3:03 PM CDT Body Mass Index 28.28 04/27/2022 3:03 PM CDT Plan of Treatment Health Maintenance Due Date Last Done Comments Annual Physical 1996 Hepatitis C 2011 DTaP, Tdap and Td Vaccines ( 1 - Tdap) 2012 Hepatitis B Vaccines (1 of 3 - 19+ 3-dose series) 2012 Pneumococcal Vaccine: Pediat rics (0 to 5 Years) and At-Risk Patients (6 to 49 Years) (1 of 2 - PCV) 2012 COVID-19 Vaccine (2023-2 5 season) 2024 HPV Vaccines Aged Out No longer eligi ble based on patient's age to complete this topic Meningococcal B Vaccine Aged Out No l onger eligible based on patient's age to complete this topic Meningococcal Vaccine Aged Out No jamarcus susan eligible based on patient's age to complete this topic RSV Immunizations Under 20 Months Aged Out No longer eligible based on patient's age to complete this topic Insurance [employer] Care Teams Chicken Cutter Relationship Specialty Start Date End Date Harika Belcher MD [address] [place], [place] [id number] PCP - General FAMILY PRACTICE 12/27/20 Consuelo Santo MD [facility] [address] [place] [address] Consulting Physician ANESTHESIOLOGY PAIN MEDICINE 12/28/19
--- OUTSIDE RECORDS SUMMARY | 2024-11-14 12:25 | XMS_ITS | Clinical Summary ---
Author Organization [facility] Address [address] [place] [address] Care Team Providers Care Vb Net Programmer Name Role Phone Harika Belcher MD Primary Care Provider [phone] Allergies No known active allergies Medications tiZANidine (ZANAFLEX) 4 mg tablet Take 4 mg by mouth nightly 2 Active ondansetron ODT (ZOFRAN-ODT) 4 mg disintegrating tablet DISSOLVE 1 TABLET IN MOUTH EVERY 6 HOURS 2 Active HYDROcodone-acetami nophen (NORCO) 10-325 mg per tablet TAKE 1 TABLET BY MOUTH EVERY 4 TO 6 HOURS 2 Active tamsulosin (FLOMAX) 0.4 mg extended release capsuleIndications: Urgency of urination,Urinary frequency Take 1 capsule by mouth once daily 90 capsule 4 Active Active Problems No known active problems Surgical History Surgery Date Site/Laterality Comments CARPAL TUNNEL RELEASE Bilateral Social History Tobacco Use Types Packs/Day Years Used Date Smoking Tobacco: Never Smokeless Tobacco: Never Tobacco Cessation:Counseling Given: Not Answered AUDIT-C Answer Date Recorded Q1: How often do you have a drink containing alc ohol? 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 Gender Identity Not on file Sexual Orientation Not on file Obstetrics History Last Filed Vital Signs Vital Sign Reading Time Taken Comments Blood Pressure 154/83 04/27/2022 12:55 PM CDT Pulse 84 04/27/2022 12:55 PM CDT Temperature 36.8 C (98.2 F) 04/27/2022 12:55 PM CDT Respiratory Rate - - Oxygen Saturation - - Inhaled Oxygen Concentration - - Weight 79.4 kg (175 lb) 10/31/2022 2:04 PM CDT Height 175.3 cm (5' 9 ) 10/31/2022 2:04 PM CDT Body Mass Index 25.84 10/31/2022 2:04 PM CDT Plan of Treatment Health Maintenance Due Date Last Done Comments Depression Screening 1993 Hepatitis C Screening 1993 Varicella Vaccines (1 of 2 - 13+ 2-dose series) 2006 Hepatitis B Screening 2011 Regular Well Visit/Exam 18-64 2011 Influenza Vaccine (#1) 2024 DTaP/Tdap/Td Vaccine (2 - Td or Tdap) 07/14/2030 07/14/2020 HPV Vaccines Aged Out No longer eligi ble based on patient's age to complete this topic Pneumococcal vaccine <65 Aged Out No longer eligible based on patient's age to complete this topic Insurance [facility] Care Teams Vb Net Programmer Relationship Specialty Start Date End Date Harika Belcher MD PCP - General Family Medicine 04/12/22
--- OUTSIDE RECORDS SUMMARY | 2024-11-14 12:25 | XMS_ITS | Encounter Summary ---
Author Organization [facility] Address [facility] [place] [address] Care Team Providers Care Garnishment Specialist Name Role Phone Harika Reeves NP Primary Care Provider [phone] Harika Belcher MD Primary Care Provider [phone] Consuelo Santo MD Unavailable [phone] Encounter Details Date Type Department Care Team (Late st Contact Info) Description 08/18/2020 Telephone [facility] [place] [address] [id number] Jo Ann Dowell RN Social History Tobacco Use Types Packs/Day Years Used Date Smoking Tobacco: Every Day Electronic Cigarettes Smokeless Tobacco: Never Alcohol Use Standard Drinks/Week Comments Not Currently 0 (1 standard drink = 0.6 oz pur e alcohol) Sex and Gender Information Value Date Recorded Sex Assigned at Not on file Legal Sex Male 7:13 PM CDT Gender Identity Not on file Sexual Orientation Not on file 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 No / Unsure 08/16/2020 9:11 AM FREELANCE DIRECTOR documented as of this encounter Progress Notes * Jo Ann Dowell RN - 08/18/2020 10:19 AM CST Faxed notes to Dr Harika Belcher's office. She is the referring provider. [phone] LANCE DIRECTOR documented in this encounter Plan of Treatment Not on file documented as of this encounter Visit Diagnoses Not on filedocumented in this encounter Care Teams Garnishment Specialist Relationship Specialty Start Date End Date Harika Reeves NP [address] [place] [address] PCP - General NURSE PRACTITIONER 08/16/20 12/26/20 Harika Belcher MD [address] [place] [id number] PCP - General FAMILY PRACTICE 12/27/20 Consuelo Santo MD [facility] [address] [place] [id number] Consulting Physician ANESTHESIOLOGY PAIN MEDICINE 12/28/19 documented as of this encounter
--- OUTSIDE RECORDS SUMMARY | 2024-11-14 12:25 | XMS_ITS | Clinical Summary ---
Author Organization [facility] Address [address] [place] [address] Phone Care Team Providers Care Lawn Technician Name Role Phone Royer Sanchez MD Primary Care Provider [phone] Medications ARIPiprazole (ABILIFY) 5 MG Tablet Take 5 mg by mouth nightly. Active cyclobenzaprine (FLEXERIL) 10 MG Tablet Take 10 mg by mouth 3 times daily as needed. Active FAMOTIDINE PO Take 40 mg by mouth daily. Active HYDROcodone-acet aminophen (NORCO) 10-325 MG Tablet Take 1 Tablet by mouth every 6 hours as needed. Active Social History Tobacco Use Types Packs/Day Years Used Date Smoking Tobacco: Never Smokeless Tobacco: Never Alcohol Use Standard Drinks/Week Comments Yes 0 (1 standard drink = 0.6 oz pur e alcohol) occasional Sex and Gender Information Value Date Recorded Sex Assigned at Not on file Legal Sex Male 9:41 AM CDT Gender Identity Not on file Sexual Orientation Not on file Last Filed Vital Signs Vital Sign Reading Time Taken Comments Blood Pressure - - Pulse - - Temperature - - Respiratory Rate - - Oxygen Saturation - - Inhaled Oxygen Concentration - - Weight - - Height 175.3 cm (5' 9 ) 03/02/2021 3:30 PM CDT Body Mass Index - - Plan of Treatment Health Maintenance Due Date Last Done Comments Hepatitis C Virus (HCV) Screening 1993 Hepatitis B Immunization (1 of 3 - 19+ 3-dose series) 2012 Influenza Immunization (#1) 2024 SARS-COV-2 Immunization ( season) 2024 Respiratory Syncytial Virus (RSV) Immunization (Adult) (1 - 1-dose 75+ series) 2068 DTaP/Tdap/Td Immunization Discontinued 07/14/2020 TdaP Immunization Completed 07/14/2020 Meningococcal Immunization (ACWY) Aged Out No longer eligible based on patient's age to complete this topic Pneumococcal Immunization Combined Aged Out No longer eligible b ased on patient's age to complete this topic Rotavirus Immunization Aged Out No lo nger eligible based on patient's age to complete this topic Insurance MEDICAID [place] Care Teams Lawn Technician Relationship Specialty Start Date End Date Royer Sanchez MD [address] [place] [id number] PCP - General Family Medicine 02/23/21
--- OUTSIDE RECORDS SUMMARY | 2024-11-14 12:25 | XMS_ITS | Referral Summary ---
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
[2024-11-14 12:34] LABS: Basophils Absolute Auto 0.1 K/mm3 (0.0-0.1); Eosinophils Absolute Auto 0.2 K/mm3 (0-0.3); Eosinophils Percent Auto 3.5 % (0-4.4); Hematocrit 41.4 % (42.0-52.0); Immature Granulocyte Absolute 0.02 K/mm3 (0.00-0.031); Immature Granulocyte Percent A 0.3 % (0-0.5); Lymphocytes Percent Auto 47.1 % (18.3-44.2); Mean Corpuscular HGB Conc 33.8 g/dl (32-36); Mean Corpuscular Hemoglobin 32.6 pg (26-34); Mean Corpuscular Volume 96.3 fl (80-100); Mean Platelet Volume 8.6 fl (7.4-10.4); Monocytes Absolute Auto 0.5 K/mm3 (0.1-0.6); Monocytes Percent Auto 8.8 % (2.6-8.5); Neutrophils Absolute Auto 2.3 K/mm3 (1.3-6.7); Neutrophils Percent Auto 39.3 % (45.5-73.1); Platelet Count Result 232 k/mm3 (150-375); Red Cell Distribution Width 11.8 % (11.5-14.5); White Blood Count 5.9 K/mm3 (4.5-10.0)
[2024-11-14 12:59] LABS: Alanine Aminotransferase 21 U/L (6-50); Albumin Level 4.6 g/dL (3.5-5.1); Alkaline Phosphatase 56 U/L (38-126); Anion Gap 9 mmol/L (4-12); Aspartate Amino Transferase 37 U/L (17-59); Bilirubin,Total 1.1 mg/dL (0.2-1.3); Blood Urea Nitrogen 16 mg/dL (9-20); Calcium 9.2 mg/dL (8.4-10.2); Carbon Dioxide 25 mmol/L (22-30); Chloride 105 mmol/L (98-107); Cholesterol 179 mg/dL (0-200); Estimated Glomerular Filt Rate > 60; Glucose 90 mg/dL (65-110); HDL Direct 86 mg/dL; Potassium 3.5 mmol/L (3.4-5.0); Sodium 139 mmol/L (137-145); Triglycerides 65 mg/dL (<150)
[2024-11-14 13:16] LABS: Erythrocyte Sedimentation Rate 5 mm/hr (0-20)
[2024-11-14 13:26] LABS: LDL Cholesterol Direct 73 mg/dL
== END 2024-11-14 12:24 | disposition home or self-care (01) ==
LOC: ANHLAB 12:24
PROVIDERS: PCP Family Medicine; Visit Provider Student in an Organized Health Care Education/Training Program
DX: M25.50 Pain in unspecified joint (principal); Z13.220 Encounter for screening for lipoid disorders; R53.83 Other fatigue
CPT/HCPCS: 36415; 80053; 80061; 85025; 85652

== ENCOUNTER 2025-01-05 13:22 | Outpatient (CLI) | payer OTHER, SELFPAY ==
--- NOTE | ~2025-01-05 | XR_ITS ---
Left Knee Technique: AP and lateral views were obtained. Clinical History: Pain Findings: No fracture or dislocation is seen. Osseous alignment is anatomic. Joint spaces are preserv ed without degenerative or erosive change. Soft tissues are unremarkable. No joint effusion is seen. Impression: Unremarkable left knee radiographs. Reviewed, dictated and finalized at location . Impression: Unremarkable left knee radiographs.
--- NOTE | ~2025-01-05 | XR_ITS ---
Right Hand Technique: PA, oblique, and lateral views were obtained. Clinical History: Pain Findings: No acute fracture or dislocation is seen. Osseous alignment is anatomic. Joint spaces are p reserved. Soft tissues are unremarkable. Impression: Unremarkable right hand. Reviewed, dictated and finalized at location M. Impression: Unremarkable right hand.
--- NOTE | ~2025-01-05 | XR_ITS ---
Right Knee Technique: AP and lateral views were obtained. Clinical History: Pain Findings: No fracture or dislocation is seen. Osseous alignment is anatomic. Joint spaces are preserv ed without degenerative or erosive change. Soft tissues are unremarkable. No joint effusion is seen. Impression: Unremarkable right knee radiographs. Reviewed, dictated and finalized at location . Impression: Unremarkable right knee radiographs.
--- NOTE | ~2025-01-05 | XR_ITS ---
Left Hand Technique: PA, oblique, and lateral views were obtained. Clinical History: Pain Findings: No acute fracture or dislocation is seen. Osseous alignment is anatomic. Joint spaces are p reserved. Soft tissues are unremarkable. Impression: Unremarkable left hand. Reviewed, dictated and finalized at location M. Impression: Unremarkable left hand.
--- OUTSIDE RECORDS SUMMARY | 2025-01-05 13:28 | XMS_ITS | Clinical Summary ---
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
--- OUTSIDE RECORDS SUMMARY | 2025-01-05 13:28 | XMS_ITS | Referral Summary ---
Author Organization [facility] Address [address] [place] [id number] Care Team Providers Care Refinery Operator Polymerization Plant Name Role Phone Harika Belcher MD Primary Care Provider [phone] Allergies No known active allergies Medications tiZANidine (ZANAFLEX) 4 mg tablet Take 4 mg by mouth nightly 03/24/20 22 Active ondansetron ODT (ZOFRAN-ODT) 4 mg disintegrating tablet DISSOLVE 1 TABLET IN MOUTH EVERY 6 HOURS 04/11/20 22 Active HYDROcodone-acetam inophen (NORCO) 10-325 mg per tablet TAKE 1 TABLET BY MOUTH EVERY 4 TO 6 HOURS 04/22/20 22 Active tamsulosin (FLOMAX) 0.4 mg extended release capsuleIndications :Urgency of urination,Urinary frequency Take 1 capsule by mouth once daily 90 capsule 12/09/19 25 Active tamsulosin (FLOMAX) 0.4 mg extended release capsuleIndications :Urgency of urination,Urinary frequency Take 1 capsule by mouth once daily 90 capsule 06/16/20 24 025 Discontinued Active Problems No known active problems Social [...] on file 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 Care Teams Refinery Operator Polymerization Plant Relationship Specialty Start Date End Date Harika Belcher MD PCP - General Family Medicine 04/12/22
--- OUTSIDE RECORDS SUMMARY | 2025-01-05 13:28 | XMS_ITS | Clinical Summary ---
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
--- OUTSIDE RECORDS SUMMARY | 2025-01-05 13:28 | XMS_ITS | Encounter Summary ---
Author Organization [facility] Address [facility] [place] [address] Care Team Providers Care Infantry Weapons Crewmember Name Role Phone Harika Reeves NP Primary Care Provider [phone] Harika Belcher MD Primary Care Provider [phone] Consuelo Santo MD Unavailable [phone] Encounter Details Date Type Department Care Team (Late st Contact Info) Description 08/18/2020 Telephone [facility] [place] [address] [id number] Jo Ann Dowell RN Social History Tobacco [...] Start Date Job End Date Owns a [employer] Not on file Not on file Not on file COVID-19 Exposure Response Date Recorded In the last month, have you been in contact with someone who was confirmed or suspected to have Coronavirus / COVID-19? 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 She is the referring provider. [phone] TIVE ASSISTANT documented in this encounter Plan of Treatment Not on file documented as of this encounter Visit Diagnoses Not on filedocumented in this encounter Care Teams Infantry Weapons Crewmember Relationship Specialty Start Date End Date Harika Reeves NP [address] [place] [id number] PCP - General NURSE PRACTITIONER 08/16/20 12/26/20 Harika Belcher MD [address] [place] [id number] PCP - General FAMILY PRACTICE 12/27/20 Consuelo Santo MD [facility] [address] [place] [id number] Consulting Physician ANESTHESIOLOGY PAIN MEDICINE 12/28/19 documented as of this encounter
--- OUTSIDE RECORDS SUMMARY | 2025-01-05 13:28 | XMS_ITS | Patient Health Record ---
Author Organization [facility] Address [address] [place] [address] Care Team Providers Care Discharge Door Operator Name Role Phone Sally Tinsley Primary Care Provider Allergies No Known Allergies Reason For Referral No Information Medications Medication SIG (Take, Route, Frequency, Duration) Notes Start Date End Date Status Vraylar 1.5 MG 1 capsule Orally at night; Duration: 30 day(s) Active HYDROcodone-Acetaminoph en 10-325 MG 1 tablet as needed Orally four times a day PCP Dr Elise Active Zoloft 50 MG 1 tablet Orally Once a day; Duration: 30 day(s) 07/26/2021 Active Social History Tobacco Use: Social History Observation Description Date Details (start date - stop date) Unknown Dont use, Tobacco Use/Smoking Question Answer Notes Are you a Uses tobacco in other forms Problems Problem Type SNOMED Code ICD Code Onset Dates Problem Status W/U Status Risk Notes Problem Mood disorder (32533721) Mood disorder (F39) 022 Active confirmed highly suspect BIPOLAR DISORDER based on initial assessment and symptoms currently being reported however need to further assess. Has failed trials of antidepressants as single agent Problem Generalized anxiety disorder (95179060) DEXTER (generalized anxiety disorder) (F41.1) Active confirmed Problem Depressive disorder (20395225) Depressive disorder (F32.9) Active confirmed Plan Of Treatment No Information Insurance Providers Payer Name Payer Address Payer Phone Subscriber Number Group Number Insured Name Patient Relationship to Insured Coverage Start Date Coverage End Date [facility] [address] [place] [phone] [id number] Uday Gorman Self - patient is the insured [id number] [facility] [address] [place] [address] [id number] Uday Gorman Self - patient is the insured 1 Medical (General) History Medical History History ICD Code passing out- silent seizures Surgical History Surgery Date(Month/Year) bilateral carpal tunnel release
== END 2025-01-05 13:23 | disposition home or self-care (01) ==
LOC: ANHLAB 13:23
PROVIDERS: PCP Family Medicine; Visit Provider Student in an Organized Health Care Education/Training Program
DX: M79.641 Pain in right hand (principal); M79.642 Pain in left hand; M25.561 Pain in right knee; M25.562 Pain in left knee
CPT/HCPCS: 73120; 73560